=== PATIENT | female | born 1995 | race Caucasian/White ===

== ENCOUNTER 2017-09-30 23:57 | Emergency (ER) | payer BC ==
[~2017-09-30] VITALS: Ht 157.5 cm; Wt 92.0 kg
[2017-10-01 00:01] VITALS: TEMP 36.5; Ht 157.5 cm; Wt 92.0 kg
--- NOTE | 2017-10-01 01:57 | EMERGENCY ROOM VISIT NOTE ---
History Report prepared by Bridgett: Catherine Terrazas Under the Supervision of: Dr. Ella Glass D.O. First contact with patient: 00:09 Chief Complaint: HEAD PAIN Stated Complaint: FELL AND HIT HEAD,HE, NAUSEA History of Present Illness The patient is a 22 year old female who presents to the Emergency Room with complaints of persistent headaches starting last night. The patient was walking home last night when she tripped and fell. She had been drinking alcohol. She hit the left side of her head on the curb. She did not lose consciousness. After she got home, she does not remember what happened. She remembers going to bed. She twisted her right ankle in the fall and has been having ankle pain. She has had right sided headaches and nausea throughout the day today. She has been sensitive to light. She denies feeling off balance, neck pain, or back pain. She denies any previous concussions or ankle injury. Source of History: patient Onset: last night Position: head Quality: ache Timing: other (persistent) Associated Symptoms: + nausea, No neck pain, No back pain Note: Pt reports right ankle pain, light sensitivity. Review of Systems See HPI for pertinent positives & negatives. A total of 10 systems reviewed and were otherwise negative. Past Medical & Surgical No previous concussions or right ankle injury. Family History No pertinent family history stated. Social History Smoking Status: Never Smoker Occupation Status: [employer] student Current/Historical Medications No Active Prescriptions or Reported Meds Allergies Coded Allergies: No Known Allergies (Unverified , 10/01/17) Physical Exam Vital Signs Date Time Temp Pulse Resp B/P (MAP) Pulse Ox O2 Delivery O2 Flow Rate FiO2 10/01/17 02:06 81 18 126/80 99 10/01/17 00:01 36.5 87 18 131/92 97 Room Air Physical Exam GENERAL: alert, well appearing, well nourished, no distress, non-toxic EYE EXAM: normal conjunctiva, PERRL and EOM's grossly intact OROPHARYNX: no exudate, no erythema, lips, buccal mucosa, and tongue normal and mucous membranes are moist NECK: supple, no nuchal rigidity, no adenopathy, no midline tenderness, no step off LUNGS: Clear to auscultation. Normal chest wall mechanics HEART: no murmurs, S1 normal and S2 normal ABDOMEN: abdomen soft, non-tender, normo-active bowel sounds, no masses, no rebound or guarding. BACK: Back is symmetrical on inspection and there is no deformity, no midline tenderness, no step off, no CVA tenderness. SKIN: no rashes and no bruising UPPER EXTREMITIES: upper extremities are grossly normal. LOWER EXTREMITIES: Right ankle with pain over the lateral malleolus. Edema noted over the lateral aspect of the ankle. No pain with palpation of the midfoot. No pain with palpation of the fibular head. No pain with palpation along the fifth metatarsal. Pulse and sensation intact. Decreased ROM secondary to pain. NEURO EXAM: Normal sensorium, cranial nerves II-XII grossly intact, normal speech, no gross weakness of arms, no gross weakness of legs. Medical Decision & Procedures ER Provider Diagnostic Interpretation: Radiology results have been interpreted by the [facility] radiologist and reviewed by me. CT Head: No intracranial hemorrhage, mass effect, or calvarial fracture Ventricles are within limits and midline Visualized paranasal sinuses, mastoid, and orbits are within limits. X-ray: I interpreted the following studies. Right Ankle: A three view study of the ankle was reviewed and was negative for acute fracture or dislocation. ED Course 0010: The patient was evaluated in room C7. A complete history and physical exam was performed. 0144: I reevaluated the patient. I discussed the findings and the treatment plan with the patient. She verbalizes agreement and understanding. She was discharged home. Medical Decision Differential diagnoses include major intracranial, cervical, spinal, thoracic, abdominal, pelvic and neurologic injury. Fracture, contusion, sprain, strain, laceration, abrasions included as well. No evidence of acute intracranial trauma, patient's symptoms likely related to concussion. Evidence of fracture on x-ray. Discussed with patient symptoms of an resolution of concussion, discussed treatment of ankle sprain, need for follow-up regarding head injuries as well as her ankle sprain, symptoms to watch and return for, she verbalized understanding was agreeable with plan. I have a low suspicion for any additional occult traumatic injury. Head Trauma GCS Score: 15 Medication Reconcilliation Current Medication List: was personally reviewed by me Blood Pressure Screening Patient's blood pressure: Elevated blood pressure Blood pressure disposition: Elevated BP felt to be situational Impression Primary Impression: CHI (closed head injury) Additional Impressions: Concussion Ankle sprain Fall Scribe Attestation The scribe's documentation has been prepared under my direction and personally reviewed by me in its entirety. I confirm that the note above accurately reflects all work, treatment, procedures, and medical decision making performed by me. Departure Information Dispostion Home / Self-Care Prescriptions No Active Prescriptions or Reported Meds Referrals No Doctor, Assigned (PCP) Patient Instructions My [facility] Additional Instructions Please use the crutches and do not bear weight on your ankle for at least a week and then begin partial/touch down weight bearing and progress as tolerated. Please elevate the leg at rest. Your concussive symptoms should slowly get better over the next several days. Please drink plenty of water to stay well hydrated. You may use tylenol and ibuprofen as needed for your headache as well as ankle pain. Please have your condition rechecked in the next 3-4 days to assure you are getting better. If your symptoms are worsening , please return to the emergency room. If your ankle does not seem to be improving, you may need to be seen by an orthopedic surgeon for additional evaluation. Problem Qualifiers Primary Impression: CHI (closed head injury) Encounter type: initial encounter Qualified Codes: S09.90XA - Unspecified injury of head, initial encounter Additional Impressions: Concussion Encounter type: initial encounter Loss of consciousness presence/duration: without LOC Qualified Codes: S06.0X0A - Concussion without loss of consciousness, initial encounter Ankle sprain Encounter type: initial encounter Involved ligament of ankle: unspecified ligament Laterality: right Qualified Codes: S93.401A - Sprain of unspecified ligament of right ankle, initial encounter Fall Encounter type: initial encounter Qualified Codes: W19.XXXA - Unspecified fall, initial encounter
[2017-10-01 02:06] VITALS: BP 126/80; PULSE 81; O2SAT 99
--- NOTE | 2017-10-01 05:51 | DIAGNOSTIC IMAGING REPORT ---
HEAD WITHOUT CONTRAST (CT) CT DOSE: 537.48 mGy.cm HISTORY: Mental status change trauma, headache, dizziness, vomiting TECHNIQUE: Multiaxial CT images of the head were performed without the use of intravenous contrast. A dose lowering technique was utilized adhering to the principles of ALARA. Comparison: None. Findings: The paranasal sinuses and mastoid air cells are clear. The calvarium and skull base are intact. The ventricles and sulci are within normal limits. There is no mass, hematoma, midline shift, or acute infarct. Impression: No acute intracranial abnormality. The above report was generated using voice recognition software. It may contain grammatical, syntax or spelling errors. Electronically signed by: John Avila M.D. 10/01/2017 5:49 AM Dictated Date/Time: 10/01/2017 5:49 AM
--- NOTE | 2017-10-01 06:01 | DIAGNOSTIC IMAGING REPORT ---
R ANKLE MIN 3 VIEWS ROUTINE CLINICAL HISTORY: pain, fall trauma COMPARISON: None. DISCUSSION: The bones and joint spaces appear intact. There is no evidence of fracture, dislocation or bony disease. Mild soft tissue edema IMPRESSION: Mild soft tissue edema. No acute bony abnormality. The above report was generated using voice recognition software. It may contain grammatical, syntax or spelling errors. Electronically signed by: John Avila M.D. 10/01/2017 5:59 AM Dictated Date/Time: 10/01/2017 5:59 AM
== END 2017-10-01 02:07 | disposition home or self-care (01) ==
LOC: C.EDB 10-01 → C.EDC 10-01 02:07
DX: S06.0X0A Concussion without loss of consciousness, initial encounter (principal); S93.401A Sprain of unspecified ligament of right ankle, initial encounter; W01.0XXA Fall on same level from slipping, tripping and stumbling without subsequent striking against object, initial encounter; Y92.480 Sidewalk as the place of occurrence of the external cause